=== PATIENT | male | born 1935 | race Caucasian/White ===

== ENCOUNTER → 2016-08-31 | Outpatient (CLI) | payer MEDICARE ==
[~2016-08-31] MED LIST: ASA CHILDREN'S81 MG PO; BUSPAR5 MG PO; EFFEXOR DPS75 MG PO; FLAGYL-DPS500 MG PO; FLOMAX DPS0.4 MG PO; LEVAQUIN DPS750 MG PO; NASONEX17 GM NS; NEURONTIN DPS300 MG PO; NORCO 5-325 TA1 EACH PO; PEPCID DPS20 MG PO; SENOKOT S1 TAB PO; XARELTO15 MG PO
== END | disposition home or self-care (01) ==
LOC: RAD.S 10:51
DX: R13.10 Dysphagia, unspecified (principal)